=== PATIENT | female | born 1950 | race Asian ===

== ENCOUNTER 2020-03-10 01:12 | Inpatient (IN) | payer OTHER ==
[~2020-03-10] VITALS: Ht 160 cm; Wt 68.5 kg
[~2020-03-10 01:12] MED LIST: ACT15 PO; AMBIEN12.5 MG PO; AMBIEN5 MG PO; AMLODIPINE10 M1 PO; ASPIR 8181 MG PO; CALCITRIOL0.25 MCG PO; CALCIUM CARBON600 MG PO; COLACE100 MG PO; FLA500 PO; FOL1 PO; FOLIC ACID1 MG PO; GABAPENTIN800 M1 PO; GABAPENTIN800 MG PO; HECORIA1 M1 PO; HECORIA1 MG PO; HUMALOG200 U/ML SC; HYDRALAZINE HCL25 MG PO; KALEXATE; LAC PO; LANTUS SOLOS100 U/M1; LASIX20 MG PO; LEVAQUIN750 MG PO; LOTENSIN10 MG PO; MACRODANTIN100 MG PO; MAGNESIUM OXID400 MG PO; METOPROLOL TART25 M1 PO; MIDODRINE HCL10 MG PO; MIDODRINE HCL2.5 M1 PO; MIDODRINE HCL2.5 MG PO; MYFORTIC360 M1 PO; MYFORTIC360 MG PO; NEURONTIN400 MG PO; NITROFURANTOIN100 M1 PO; NITROFURANTOIN100 MG PO; NORCO1 TA2 PO; NOVI SQ; ONDANSETRON ODT4 M1 PO; PEP20 PO; PEPCID20 MG PO; PLA75 PO; PRA40 PO; PRE5 PO; PRILOSEC20 MG PO; PRO PO; PROGRAF1 MG PO; RESTORIL15 MG PO; SENSIPAR30 M1 PO; SENSIPAR30 MG PO; TANZEUM30 MG SC; TOPROL XL25 MG PO; TYLENOL WITH CO1 TAB PO
[2020-03-10 01:55] VITALS: Ht 160 cm; Wt 68.5 kg
--- NOTE | 2020-03-10 01:58 | NUR ---
PT WAS BIBA WITH ALOC AND BRADYCARDIA. REPORTS FROM EMS STATE PT HAD A HR OF APROX 30 UPON ARRIVAL. IN ROUTE TO ED PT WAS PUT ON A PACER AND RECIEVED A TOTAL OF 1MG OF ATROPINE AND 2 MG OF VERSED. PT HAD 0.9% NS RUNNING WIDE OPEN AND APROX 200ML INFUSED. PT HAS A 18G IV IN LAC. PT UPON ARRIVAL WAS ALERT TO VERBAL STIMULI AND ABLE TO ANSWER QUESTIONS IN CLEAR COMPLETE SENTENCES. PER EMS PT ALSO HAD A O2 SAT AT APROX 75% ON RA AT HOME. PT WAS PUT ON 15L NON REBREATHER AND OXYGEN SAT RETURNED TO APROX 97-100%. DR. HO AT BEDSIDE FOR MSE. PT CONNECED TO FULL CM.
[2020-03-10 02:02] LABS: BASOPHIL % 0.3 % (0.2-1.3); PLATELET COUNT 184 x10^3mcL (179-408); RED CELL DISTRIBUTION WIDTH 13.9 % (12.3-17.7)
[2020-03-10 02:04] LABS: rbc morphology (normal/abnorm) NORMAL (NORMAL)
[2020-03-10 02:20] LABS: ALKALINE PHOSPHATASE 68 U/L (46-116); ALT/SGPT 111 U/L (14-59); AST/SGOT 18 U/L (15-37); BILIRUBIN TOTAL 0.29 mg/dL (0.20-1.00); CALCIUM 7.1 mg/dL (8.5-10.1); CARBON DIOXIDE 20.3 mmol/L (21-32); CHLORIDE SERUM 101 mmol/L (98-107); GLUCOSE SERUM 148 mg/dL (74-106); SODIUM SERUM 134 mmol/L (136-145); TOTAL PROTEIN, SERUM 6.6 g/dL (6.4-8.2)
[2020-03-10 02:25] LABS: ALBUMIN 3.1 g/dL (3.4-5.0)
[2020-03-10 02:26] LABS: POTASSIUM SERUM 6.9 mmol/L (3.5-5.1)
[2020-03-10 02:27] LABS: CREATININE SERUM 4.7 mg/dL (0.6-1.0)
--- NOTE | 2020-03-10 02:57 | NUR ---
PT MEDICATED WITH ORDERED MED FOR ELEVATED POTASSIUM. PT REMAINS AWAKE PERFUSING PRESSURE AND HR IN THE 30S.
--- NOTE | 2020-03-10 02:58 | NUR ---
PT NOTED TO HAVE IMPROVED VS. RECORDED.
--- NOTE | 2020-03-10 03:25 | NUR ---
PT WAS TAKEN OFF OF NON REBREATHER AND PLACED ON NC FOR ORAL MEDICATION ADMINISTRATION. PT TOLERATING WELL. PT O2 SAT STABLE AT THIS TIME WILL CONTINUE PT ON ONLY NC. WILL MONITOR O2 SAT AND NEED FOR SUPPLIMENTAL OXYGEN. PT AAO X4 RESPIRATIONS E/U NO ACUTE DISTRESS NOTED.
--- NOTE | 2020-03-10 03:36 | NUR ---
PT SITTING IN HIGH FOWLERS IN A POSITION OF COMFORT. PT MEDICATED PER EMAR. PT TOLERATING ORAL MEDICATION WELL. PT VS HAVE IMPROVED. PT REMAINS CONNECTED TO FULL CM WILL CONTINUE TO MONITOR.
--- NOTE | 2020-03-10 04:24 | NUR ---
PT SITTING IN HIGH FOWLERS IN A POSITION OF COMFORT. PT AAOX4 RESPIRATIONS E/U NO DISTRESS NOTED. PT ABLE TO TALK IN FULL AND COMPLETE SENTENCES. PT SEEN BY MD THOMAS FOR ADMIT MSE. PT UNABLE TO USE BED BARCENAS AT THIS TIME. WILL TRY AGAIN AT ANOTHER TIME. VSS AT THIS TIME WILL CONTINUE TO MONITOR.
--- NOTE | 2020-03-10 05:22 | NUR ---
PT LAYING IN HIGH FOWLERS IN A POSITION OF COMFORT. PT RESPIRATIONS E/U NO DISTRESS NOTED. PT REMAINS CONNECTED TO FULL CM WILL CONTINUE TO MONITOR.
--- NOTE | 2020-03-10 05:30 | NUR ---
ULTRA SOUND AT BEDSIDE AT THIS TIME.
--- NOTE | 2020-03-10 05:57 | NUR ---
SPOKE WITH ANDRES IN ICU STATES BED IS READY FOR PT THE ROOM JUST HAS TO BE TERMINAL CLEANED BEFORE THEY ARE ABLE TO ACCEPT PT.
--- NOTE | 2020-03-10 06:44 | NUR ---
DR. ARANGO AT BEDSIDE FOR LA CATH PLACEMENT.
--- NOTE | 2020-03-10 06:52 | NUR ---
GAVE REPORT TO TAMELA BARAKAT TO ASSUME CARE OF PT.
[2020-03-10] MEDS ORDERED: ULTRAM50 MG GT (06:58)
[2020-03-10] MEDS ORDERED: PREDNISONE1 MG GT (06:59)
[2020-03-10] MEDS ORDERED: TOPROL XL25 MG PO (06:59)
--- NOTE | 2020-03-10 07:05 | NUR ---
FIRST CONTACT WITH PT. DR. HEATH CURRENTLY INSERTING CARLYN CATHETER.
--- NOTE | 2020-03-10 11:30 | NUR ---
Dr. Reinoso at bedside for placement of dual lumen cathere. ROSHNI Soliman assisting at bedside, pt tolerated well.dressing dry and intact.
[2020-03-10 12:00] VITALS: BP 109/68
--- NOTE | 2020-03-10 13:00 | NUR ---
16 FR MORAES INSERTED, PT TOLERATED WELL. UA AND UDS SENT TO LAB.
[2020-03-10 13:03] LABS: MAGNESIUM 2.5 mg/dL (1.8-2.4)
[2020-03-10 13:06] LABS: T3 TOTAL 0.48 ng/mL
[2020-03-10 13:08] LABS: CHOLESTEROL/HDL RATIO 2.5
[2020-03-10 13:56] LABS: CREATININE UR 71.9 mg/dL
[2020-03-10 15:39] LABS: FREE T4 1.51 ng/dL (0.76-1.46); FREE THYROXINE INDEX 3.4 ug/dL (1.4-4.5); T4(THYROXINE) 8.5 ug/dL (4.7-13.3)
[2020-03-10 16:00] VITALS: BP 147/68
[2020-03-10 19:20] VITALS: BP 113/47
--- NOTE | 2020-03-10 19:46 | NUR ---
i DID RECIEVE THE PT EALIER THIS AM ABOUT 0800. THE PT RECIEVED MEDICATIONS TO DEAL WITH HER HYPERKALEMIA IN THE ER. THIS AM SHE WAS IN IN BRADYCARDIA SHE HAS BEEN. FOR ME HER BLOOD PRESSURE IS WNL AND SHE FOLLOWS COMMANDS MOVING ALL EXTREMITIES. SHE HAS HX OF RENAL TX. WE WERE ABLE TO GIVE HER HD AND HER HR WENT INTO SR. SHE WAS ABLE TO EAT 50% OF HER MEAL AFTER HD. I CALLED HER TO UPDATE HIM AND GIVE HIM A MESSAGE FROM THE PT. THE PT IS STABLE AND COMFORTABLE AT THIS TIME.
[2020-03-11 06:18] LABS: BASOPHIL % 0.2 % (0.2-1.3); PLATELET COUNT 191 x10^3mcL (179-408); RED CELL DISTRIBUTION WIDTH 13.6 % (12.3-17.7)
[2020-03-11 07:30] LABS: CALCIUM 7.4 mg/dL (8.5-10.1); CARBON DIOXIDE 28.7 mmol/L (21-32); CHLORIDE SERUM 102 mmol/L (98-107); CREATININE SERUM 2.4 mg/dL (0.6-1.0); GLUCOSE SERUM 141 mg/dL (74-106); PHOSPHOROUS 4.6 mg/dL (2.5-4.9); POTASSIUM SERUM 4.1 mmol/L (3.5-5.1); SODIUM SERUM 140 mmol/L (136-145)
[2020-03-11 09:00] VITALS: BP 148/47
[2020-03-11 10:35] LABS: rbc morphology (normal/abnorm) NORMAL (NORMAL)
--- NOTE | 2020-03-11 11:00 | NUR ---
MD HAGER AT BEDSIDE, PER MD IRBY TO REMOVE CARLYN IN [facility], PT ABLE TO TRANSFER
--- NOTE | 2020-03-11 12:21 | NUR ---
MD LAL AT BEDSIDE, UPDATED ON PT'S STATUS, PER MD CONTINUE TO MONITOR, NO HD TODAY, PT ABLE TO TRANSFER TO [facility]
--- NOTE | 2020-03-11 12:26 | NUR ---
LATE ENTRY, MD SUTHERLAND AT BEDSIDE, NOTIFIED PT HAS PERIODS OF CONFUSION, AWARE NO NEW ORDERS
--- NOTE | 2020-03-11 13:37 | NUR ---
PT UA SAMPLE SENT, PER PT WANTS TO WAIT TO REMOVE RAMON ALCOCER CATH AFTER SHE EATS LUNCH, PT STABLE AT THIS TIME
[2020-03-11 16:00] VITALS: BP 139/57
--- NOTE | 2020-03-11 20:48 | NUR ---
REC PT ALERT TO SELF AND PLACE / TOLERATING PO /FLDS WELL NO COMPLAINT OF N/V/D AE DECREASED TO BASES CRISPIN;ATE BUT NO C/O CP/ AND OR SOB ABD SOFT BS HEARD UPOSN AUSCULATAION. RADIAL PULSES PALABLE PPPX4 VOIDING QS PER MORAES / PT REQUESTING SLEEPING PILL/ PAIN PILL TO SLEEP /CALL HOUSE IN REACH NO OTHER VOICED CONCERNS A TTHIS TIME
--- NOTE | 2020-03-11 21:43 | NUR ---
PT SLEEPING VSS/ NO CPOICED CONCERNS AT THIS TIME
--- NOTE | 2020-03-11 23:31 | NUR ---
REPORT GIVEN TO RN HOME HEALTHROSHNI ESCAMILLA / VIOLET AFEBRIL;E AT THIS TIME NSR/ NO ECTOPY/ 119/60 R12
--- NOTE | 2020-03-12 01:09 | NUR ---
PT TRANSFERED TO FLOOR VIA TELE MONITOR VS PER FLOW SHEET
[2020-03-12 01:20] VITALS: BP 148/76
--- NOTE | 2020-03-12 01:20 | NUR ---
PATIENT IS A/O X2. PATIENT IS CONFUSED AND FORGETFUL. DOES NOT KNOW HOW SHE GOT TO THE HOSPITAL. HAD TO EXPLAIN TO HER ABOUT THE EVENT THAT OCCURED AT HER HOME. ON TELEMONITOR. NSR. DENIES CHEST PAIN AND CHEST PRESSURE. HR 85. RIGHT ARM AND LEFT ARM FISTULA. PATIENT STATES THAT HAS NOT BEEN USED IN YEARS. DRESSING NOTED ON [facility] SITE. FEMORAL CARLYN CATH IN PLACE. DRY BLOOD NOTED AROUND SITE. WILL CONT TO MONITOR SITE. VITALS WNL AND CHARTED. NO EDEMA NOTED. ON ROOM AIR. NO S/S OF RESP DISTRESS. SATURATION 92%. DENIES ABD PAIN. DENIES ANY PAIN AT THIS TIME. BED IN LOWEST AND LOCKED POSITION. CALL LIGHT WITHIN REACH. WILL CONT TO MONITOR.
[2020-03-12 05:49] VITALS: BP 132/6
[2020-03-12 06:46] LABS: CALCIUM 7.6 mg/dL (8.5-10.1); CARBON DIOXIDE 27.6 mmol/L (21-32); CHLORIDE SERUM 103 mmol/L (98-107); CREATININE SERUM 1.9 mg/dL (0.6-1.0); GLUCOSE SERUM 109 mg/dL (74-106); MAGNESIUM 1.9 mg/dL (1.8-2.4); PHOSPHOROUS 3.7 mg/dL (2.5-4.9); POTASSIUM SERUM 4.2 mmol/L (3.5-5.1); SODIUM SERUM 142 mmol/L (136-145)
--- NOTE | 2020-03-12 07:20 | NUR ---
RECEIVED REPORT FROM RAILWAY SIGNAL TECHNICIAN RN. PT IN BED AWAKE AND ALERT WITH PERIODS OF DISORIENTATION. IV SITE TO LW SALINE LOCK. ON TELE 6 NSR. ON RA, NO ACUTE RESPIRATORY DISTRESS. MORAES CATH IN PLACE DRAINING WITH YELLOW URINE. DENIES PAIN OR DISCOMFORT AT THIS TIME. BED IN LOWEST POSITION. CALL LIGHT WITHIN REACH. WILL CONTINUE TO MONITOR
[2020-03-12 08:33] VITALS: BP 142/71
[2020-03-12 11:53] VITALS: BP 116/66
[2020-03-12 12:36] LABS: BASOPHIL % 0.5 % (0.2-1.3); PLATELET COUNT 195 x10^3mcL (179-408); RED CELL DISTRIBUTION WIDTH 14.1 % (12.3-17.7)
[2020-03-12 12:59] LABS: rbc morphology (normal/abnorm) NORMAL (NORMAL)
[2020-03-12 16:48] VITALS: BP 160/73
--- NOTE | 2020-03-12 19:30 | NUR ---
PT IN BED AWAKE AND ALERT, ABLE TO MAKE NEEDS KNOWN. IV SITE TO LW SALINE LOCK. ON TELE 6. MORAES CATH IN PLACE DRAINING WITH YELLOW URINE. ON RA, NO ACUTE RESPIRATORY DISTRESS. R FEMORAL CARLYN CATH IN PLACE COVERED WITH DRY DRESSING, NO NOTED BLEEDING. DENIES PAIN OR DISCOMFORT. BED IN LOWEST POSITION. CALL LIGHT WITHIN REACH. ENDORSED CARE TO INCOMING RN.
--- NOTE | 2020-03-12 19:30 | NUR ---
RECEIVED PT IN BED AWAKE, ALERT, ORIENTED TO PERSON ONLY. PT SEEMS VERY FORGETFUL. SHE HAS NO C/O HEADACHE AND DIZZINESS. LUNGS CTA. NO SOB ON ROOM AIR. SHE HAS NO C/O PAIN. W/ HD CATH TO RT FEMORAL INTACT. W/ OLD AV SHUNT TO LT UPPER ARM. W/ IV HL TO LT WRIST. PT HAS MORAES CATH INTACT. CALL LIGHT W/IN REACH.
[2020-03-12 20:44] VITALS: BP 136/70
--- NOTE | 2020-03-13 05:08 | NUR ---
PT SLEPY THROUGH THE NIGHT. SHE REMAINS ALERT AND ORIENTED X1. SHE HAD NO C/O PAIN. NO EPISODE OF RESP. DISTRESS. HL TO LT WRIST INTACT. ALL NEEDS ATTENDED TO.
[2020-03-13 05:29] VITALS: BP 142/62
[2020-03-13 06:23] LABS: CALCIUM 7.9 mg/dL (8.5-10.1); CARBON DIOXIDE 27.7 mmol/L (21-32); CHLORIDE SERUM 105 mmol/L (98-107); CREATININE SERUM 1.9 mg/dL (0.6-1.0); GLUCOSE SERUM 148 mg/dL (74-106); POTASSIUM SERUM 4.5 mmol/L (3.5-5.1); SODIUM SERUM 144 mmol/L (136-145)
[2020-03-13 06:25] LABS: BASOPHIL % 0.3 % (0.2-1.3); PLATELET COUNT 184 x10^3mcL (179-408); RED CELL DISTRIBUTION WIDTH 14.1 % (12.3-17.7)
--- NOTE | 2020-03-13 07:30 | NUR ---
RECIEVED REPORT FROM MEDICAL RADIATION TECH NURSE. PT IS A/OX1 WITH CONFUSION AND FORGETFULLNESS. TELE #6, NSR. IV TO LW, PATENT, SL. MORAES IS CDI. WILL CONTINUE TO MONITOR
[2020-03-13 09:01] VITALS: BP 182/38
[2020-03-13 13:17] LABS: rbc morphology (normal/abnorm) NORMAL (NORMAL)
[2020-03-13 13:31] VITALS: BP 144/93
[2020-03-13 17:27] VITALS: BP 189/88
--- NOTE | 2020-03-13 18:37 | NUR ---
PT IS A/OX1 WITH PERIODS OF FORGETFULLNESS AND CONFUSION. VS STABLE. PT HAS MORAES. CDI. IV TO LW, PATENT, SL. WILL ENDORSE CARE TO ONCOMING NURSE.
--- NOTE | 2020-03-13 19:30 | NUR ---
RECEIVED PT IN BED AWAKE AND RESTING QUIETLY. SHE IS ALERT,ORIENTED X1. PT ANSWERS BUT SEEMS TO FORGET WHAT THE NEXT THING SHE WILL SAY WHEN QUESTIONED. SHE HAS NO C/O HEADACHE AND DIZZINESS. NO FACIAL DROOP. SHE HAS NO C/O PAIN. W/ MORAES CATH INTACT AND PATENT . HD CATH TO RT GROIN INTACT. W/ HL TO LT WRIST. CALL LIGHT W/IN REACH.
[2020-03-13 22:49] VITALS: BP 167/77
--- NOTE | 2020-03-14 03:46 | NUR ---
PT AWAKE AND CALM AT THIS TIME. NO C/O PAIN.
[2020-03-14 04:30] VITALS: BP 170/80
--- NOTE | 2020-03-14 04:34 | NUR ---
INFORMED DR. GRANT REGARDING BP OF 170/80 HR=82.
--- NOTE | 2020-03-14 05:03 | NUR ---
PT SLEPT ON AND OFF. SHE WAS CALM BUT REMAINS ORIENTED X1. SHE HAD NO C/O PAIN. NO RESP. DISTRESS. MORAES CATH INTACT AND W/ 550 CC OUTPUT THIS SHIFT. NO BM NOTED. ALL NEEDS ATTENDED TO.
--- NOTE | 2020-03-14 07:30 | NUR ---
RECEIVED PATIENT SITTING UP IN BED, AWAKE ALERT AND ORIENTED X 1. RESP EVEN AND UNLABORED, LUNGS CLEAR ON ROOM AIR. HL LEFT WRIST PATENT. ABD SOFT BOWEL SOUNDS ACTIVE, LBM YESTERDAY. MORAES CATH DRAINING YELLOW URINE. LEFT ARM AV SHUNT NOT BEING USED. RT FEMORAL CARLYN CATH NOTED. PATIENT DENIES ANY PAIN OR DISCOMFORT. WILL CONTINUE TO MONITOR.
[2020-03-14 07:31] VITALS: BP 157/87
[2020-03-14 07:56] LABS: BASOPHIL % 0.2 % (0.2-1.3); PLATELET COUNT 175 x10^3mcL (179-408); RED CELL DISTRIBUTION WIDTH 14.2 % (12.3-17.7)
[2020-03-14 08:51] LABS: CALCIUM 7.1 mg/dL (8.5-10.1); CARBON DIOXIDE 27.4 mmol/L (21-32); CHLORIDE SERUM 104 mmol/L (98-107); CREATININE SERUM 1.7 mg/dL (0.6-1.0); GLUCOSE SERUM 88 mg/dL (74-106); MAGNESIUM 1.8 mg/dL (1.8-2.4); POTASSIUM SERUM 3.8 mmol/L (3.5-5.1); SODIUM SERUM 144 mmol/L (136-145)
--- NOTE | 2020-03-14 10:26 | NUR ---
PATIENT WENT DOWN FOR CT HEAD VIA BED AT THIS TIME. WILL CONTINUE TO MONITOR UPON RETURN TO FLOOR.
--- NOTE | 2020-03-14 10:47 | NUR ---
PATIENT RETURNED FROM CT VIA BED. PATIENT HAD SMALL EMESIS. PATIENT CLEANED UP AND LINEN CHNGE DONE. APPEARS TO BE RESTING AT THIS TIME. WILL CONTINUE TO MONITOR.
[2020-03-14 11:26] LABS: rbc morphology (normal/abnorm) NORMAL (NORMAL)
[2020-03-14 12:27] VITALS: BP 155/67
--- NOTE | 2020-03-14 12:35 | NUR ---
P.T NOTE UNABLE TO PARTICIPATE FOR PHYSICAL THERAPY EVAL DUE TO NAUSEA AND VOMITTING. TO FOLLOW UP WHEN APPROPRIATE
--- NOTE | 2020-03-14 13:15 | NUR ---
PATIENT'S PLAN OF CARE WAS DISCUSSED AND REVIEWED WITH HARVESTING CONTRACTOR:GRACIE CHIU. I HAVE REVIEWED THE DATA COLLECTION BY HARVESTING CONTRACTOR (NAME):GRACIE CHIU. ENTERED ON (DATE/TIME):03/14/20 I CONCUR WITH THE DATA AND ANY EXCEPTIONS OR COMMENTS ARE LISTED BELOW:
--- NOTE | 2020-03-14 15:51 | NUR ---
PATIENT IS SITTING UP IN BED, AWAKE AND ALERT. NO DIFFICULTY SWALLOWING WATER, OR TAKING PILLS NOTED. BILAT ASSISTANT PRODUCE MANAGER STRONG AND EQUAL SPEECH CLEAR. NO FACIAL DROOP NOTED. MOVING ALL EXTREM WELL.
[2020-03-14 16:57] VITALS: BP 160/78
--- NOTE | 2020-03-14 17:09 | NUR ---
PATIENT IS IN BED CAROTID US IN PROGRESS. TELE CONSULT CALLED AND TELE CONSULT MONITOR IN PLACED IN FRONT OF PATIENT. NO CHANGE IN CONDITION NOTED. WILL CONTINUE TO MONITOR.
--- NOTE | 2020-03-14 18:15 | NUR ---
TELE NEURO CONSULT WAS DONE THIS EVENING. CAROTID US DONE WELL. PATIENT TO HAVE MRIOF BRAIN DONE.
--- NOTE | 2020-03-14 19:44 | NUR ---
RECEIVED REPORT FROM DAY SHIFT NURSE. PT A/OX1, ORIENTED TO PERSON. SEIZURE PRECAUTIONS IN PLACE. PT WAS ABLE TO STATE NAME AND BIRTHDAY. REPONDS TO VERBAL STIMULI. ON TELE#63 READING NSR. NO S/S OF CHEST PAIN OR PRESSURE. PULSES PALPABLE. NO EDEMA NOTED. RR EVEN AND UNLABORED ON RA. NO SIGNS OF RESP DISTRESS NOTED. PT HAS L ARM AV SHUNT, NOT WORKING. R GROIN CARLYN CATH, LAST HD ON 03/10 WITH 2L OUTPUT. MORAES CATH IN PLACE DRAINING YELLOW URINE. PTS URCX + FOR ECOLI, SPOKE WITH DR. GRANT REGARDING ANTIBIOTIC TREATMENT. NO NEW ORDERS AT THIS TIME. GENERALIZED WEAKNESS NOTED. PT HAS ECCHYMOSIS TO BUE, R EAR, AND TO THE R SIDE OF NECK. NO C/O PAIN OR DISCOMFORT. IV TO L WRIST, PATENT AND INTACT SALINE LOCKED. CALL LIGHT WITHIN REACH. BED IN LOWEST POSITION. WILL CONTINUE TO MONITOR.
[2020-03-14 21:22] VITALS: BP 144/79
--- NOTE | 2020-03-15 01:26 | NUR ---
PT SLEEPING COMFORTABLY AT THIS TIME. EASILY AROUSABLE. RR EVEN AND UNLABORED ON RA. NO SIGNS OF ACUTE DISTRESS NOTED. CALL LIGHT WITHIN REACH. BED IN LOWEST POSITION. WILL CONTINUE TO MONITOR.
--- NOTE | 2020-03-15 04:47 | NUR ---
REMOVED PTS IV TO L ARM WITH TIP INTACT. ATTEMPTED TWO TIMES TO PLACE NEW IV IN R ARM, UNBLE TO OBTAIN ACCESS AT THIS TIME. PT REQUESTED TO TRY AGAIN LATER IN THE DAY.
[2020-03-15 05:53] VITALS: BP 150/65
--- NOTE | 2020-03-15 06:24 | NUR ---
PT AWAKE RESTING IN BED AT THIS TIME. NO SIGNS OF ACUTE DISTRESS NOTED. RR EVEN AND UNLABORED ON RA. NO C/O PAIN OR DISCOMFORT. MORAES CATH IN PLACE DRAINING YELLOW URINE. CALL LIGHT WITHIN REACH. BED IN LOWEST POSITION. WILL ENDORSE CARE TO ONCOMING SHIFT NURSE.
[2020-03-15 07:29] LABS: BASOPHIL % 0.2 % (0.2-1.3); PLATELET COUNT 177 x10^3mcL (179-408); RED CELL DISTRIBUTION WIDTH 14.4 % (12.3-17.7)
--- NOTE | 2020-03-15 07:30 | NUR ---
RECEIVED PATIENT IN BED, AWAKE AND ALERT X 1. PATIENT HAVING DIFFICULTY FINDING HER WORDS, SAYS,"I AM SORRY." MANY TIMES WHEN SHE CAN'T SAY WHAT SHE WANTS. NO DIFFICULTY SWALLOWING MEDS OR WATER NOTED. NO IV ACCESS, WILL ATTEMPT TO INSERT HL. MORAES CATH DRAINING YELLOW URINE. MOVES EXTREMITIES WELL IN BED. P.T. TO SEE PATIENT TODAY. FOLLOWS COMMANDS. WILL CONTINUE TO MONITOR. BILAT BRIDGE MECHANIC STRONG AND EQUAL.
[2020-03-15 08:17] LABS: CALCIUM 7.4 mg/dL (8.5-10.1); CARBON DIOXIDE 25.4 mmol/L (21-32); CHLORIDE SERUM 101 mmol/L (98-107); CREATININE SERUM 1.7 mg/dL (0.6-1.0); GLUCOSE SERUM 170 mg/dL (74-106); MAGNESIUM 1.8 mg/dL (1.8-2.4); PHOSPHOROUS 3.4 mg/dL (2.5-4.9); POTASSIUM SERUM 3.5 mmol/L (3.5-5.1); SODIUM SERUM 143 mmol/L (136-145)
[2020-03-15 08:44] LABS: rbc morphology (normal/abnorm) NORMAL (NORMAL)
[2020-03-15 09:00] VITALS: BP 141/68
--- NOTE | 2020-03-15 13:19 | NUR ---
PATIENT REMAINS IN BED, NO CHANGE IN CONDITION NOTED AT THIS TIME.
--- NOTE | 2020-03-15 14:28 | NUR ---
PT WAS SEEN FOR DYSPHAGIA. PT WAS ABLE TO SAFELY SWALLOW PUREE DIET WITH THIN LIQUID. PT HAD DIFFICULTY WITH MASTICATION SKILLS. RECOMMENDATION PUREE DIET WITH THIN LIQUID.
--- NOTE | 2020-03-15 14:38 | NUR ---
CARLYN AKINS DC'D AT THIS TIME BY DR FERNANDEZ. DRESSING CLEAN AND DRY. PATIENT TO BE DISCHARGED TO [facility] TODAY.
[2020-03-15] MEDS ORDERED: ATORVASTATIN CA40 M1 PO (14:50)
[2020-03-15] MEDS ORDERED: ADA30 PO (14:51)
[2020-03-15] MEDS ORDERED: ECO81 PO (14:51)
[2020-03-15] MEDS ORDERED: PRE5 PO (14:52)
[2020-03-15] MEDS ORDERED: PEP20 PO (14:54)
[2020-03-15] MEDS ORDERED: SENSIPAR30 M1 PO (14:55)
[2020-03-15] MEDS ORDERED: FOL1 PO (14:55)
[2020-03-15] MEDS ORDERED: PRO PO (14:55)
[2020-03-15] MEDS ORDERED: CIPRO500 MG PO (15:49)
--- NOTE | 2020-03-15 16:08 | NUR ---
PATIENT TO BE DISCHARGED TO [facility]. SON TO PICK PATIENT UP AT 1645. REPORT CALLED TO ROBERT BARAKAT AT [facility]. WILL SEND DISCHARED PACKAGE WITH PATIENT UPON DISCHARGE.
--- NOTE | 2020-03-15 17:00 | NUR ---
PATIENT READY TO D/C TO [place]. SON HERE TO TRANSPORT HER. TELE DC/D NO IV ACCESS, PATIENT LEFT MORAES CATH REMAINS IN. DISCHARGE INSTRUCTIONS GIVEN TO [facility] PATIENT'S SON IN THE LOBBY. D/C PACKETT SENT TO [place] WITH AWILDA. CONDITION APPEARS STABLE.
== END 2020-03-15 17:11 | DRG 698 ==
LOC: ED 01:12 → IC 03:22 → DU 03-12 01:12 → MU 03-13 17:11 → DU 03-14 17:09
PROVIDERS: Emergency Medicine; Internal Medicine; ADMIT Family Medicine; ATTEND Family Medicine
PROC: B54BZZA Ultrasonography of Right Lower Extremity Veins, Guidance (ICD-10-PCS; principal; 2020-03-10)
PROC: 06HY33Z Insertion of Infusion Device into Lower Vein, Percutaneous Approach (ICD-10-PCS; 2020-03-10)
PROC: 02HV33Z Insertion of Infusion Device into Superior Vena Cava, Percutaneous Approach (ICD-10-PCS; 2020-03-10)
PROC: B548ZZA Ultrasonography of Superior Vena Cava, Guidance (ICD-10-PCS; 2020-03-10)
PROC: 5A1D70Z Performance of Urinary Filtration, Intermittent, Less than 6 Hours Per Day (ICD-10-PCS; 2020-03-10)
DX: T86.11 Kidney transplant rejection (principal); G93.41 Metabolic encephalopathy; J96.01 Acute respiratory failure with hypoxia; I63.9 Cerebral infarction, unspecified; N17.9 Acute kidney failure, unspecified; E44.1 Mild protein-calorie malnutrition; E87.2 Acidosis; E87.1 Hypo-osmolality and hyponatremia; Z94.0 Kidney transplant status; Z20.828 Contact with and (suspected) exposure to other viral communicable diseases; T86.19 Other complication of kidney transplant; E87.5 Hyperkalemia; R00.1 Bradycardia, unspecified; E11.22 Type 2 diabetes mellitus with diabetic chronic kidney disease; M81.0 Age-related osteoporosis without current pathological fracture; E78.00 Pure hypercholesterolemia, unspecified; E83.51 Hypocalcemia; Y83.8 Other surgical procedures as the cause of abnormal reaction of the patient, or of later complication, without mention of misadventure at the time of the procedure; E83.39 Other disorders of phosphorus metabolism; N18.9 Chronic kidney disease, unspecified; I12.9 Hypertensive chronic kidney disease with stage 1 through stage 4 chronic kidney disease, or unspecified chronic kidney disease; Z88.1 Allergy status to other antibiotic agents; Z83.3 Family history of diabetes mellitus; Z68.26 Body mass index [BMI] 26.0-26.9, adult; Z79.899 Other long term (current) drug therapy
CPT/HCPCS: 36556; 82962; 83880; 84439; 92526-GN; 92610-GN; G0378; J0461; J0610; J1642; J1644; J1815; J3490; J7030; J7507; J7512; U0003